=== PATIENT | male | born 1980 | race Caucasian/White ===

== ENCOUNTER 2018-01-28 22:01 | Emergency (ER) | payer OTHER ==
[~2018-01-28] VITALS: Ht 175.3 cm; Wt 130.0 kg
[2018-01-28 23:33] VITALS: BP 141/96
== END 2018-01-28 23:34 | disposition home or self-care (01) ==
LOC: EME 22:01
DX: S93.401A Sprain of unspecified ligament of right ankle, initial encounter (principal); X50.9XXA Other and unspecified overexertion or strenuous movements or postures, initial encounter; Y93.22 Activity, ice hockey
CPT/HCPCS: 73610; 99281; 99284